=== PATIENT | female | born 1940 | race Caucasian/White ===

== ENCOUNTER 2019-12-04 15:42 | Emergency (ER) | payer MEDICARE ==
[~2019-12-04 15:42] MED LIST: ACET325 PO; AMLO5 PO; BUME2 PO; BUSP10 PO; CIPR500 PO; CLON.1 PO; ENAL20 PO; FURO40 PO; METR500 PO; Metformin HCl1000 MG PO; NAPR500 PO; POTCHL20ER PO; SACC250C PO; SERT100 PO; SIMV10 PO
== END 2019-12-04 16:00 | disposition left against medical advice (07) ==
LOC: ER 15:42
DX: Z53.21 Procedure and treatment not carried out due to patient leaving prior to being seen by health care provider (principal)

== ENCOUNTER 2019-12-04 19:33 | Emergency (ER) | payer MEDICARE ==
[~2019-12-04] VITALS: Ht 165.1 cm; Wt 85.3 kg
[2019-12-04 20:42] LABS: BASOPHILS ABSOLUTE AUTO 0.03 K/mm3 (0.00-0.23); BASOPHILS PERCENT AUTO 1 % (0-2); EOSINOPHILS ABSOLUTE AUTO 0.11 K/mm3 (0.00-0.68); EOSINOPHILS PERCENT AUTO 3 % (0-6); Hematocrit 35.9 % (33.0-51.0); Hemoglobin 11.8 g/dL (11.5-16.0); IMMATURE GRAN ABSOLUTE AUTO 0.03 K/mm3 (0.00-0.10); IMMATURE GRAN PERCENT AUTO 1 % (0-1); LYMPHOCYTES ABSOLUTE AUTO 0.75 K/mm3 (0.84-5.20); LYMPHOCYTES PERCENT AUTO 17 % (21-46); MONOCYTES ABSOLUTE AUTO 0.54 K/mm3 (0.16-1.47); MONOCYTES PERCENT AUTO 12 % (4-13); Mean Corpuscular HGB 30.6 pg (26.0-34.0); Mean Corpuscular HGB Conc 32.9 g/dL (31.5-36.5); Mean Corpuscular Volume 93 fL (80-100); Mean Platelet Volume 10.4 fL (9.1-12.4); NEUTROPHILS ABSOLUTE AUTO 2.93 K/mm3 (1.96-9.15); NEUTROPHILS PERCENT AUTO 67 % (41-73); Platelet Count 163 K/mm3 (150-400); RDW Coefficient Variation 14.8 % (11.7-14.2); RDW Standard Deviation 50.5 fL (35.1-46.3); Red Blood Cell Count 3.86 M/mm3 (3.80-5.20); White Blood Cell Count 4.39 K/mm3 (4.00-11.30)
[2019-12-04 20:51] LABS: Albumin, Blood 3.5 g/dL (3.4-5.0); Albumin/Globulin Ratio 0.6 (0.8-1.8); Bilirubin, Total 0.5 mg/dL (0.1-1.0); Bun/Creatinine Ratio 6.2 (12.0-20.0); C-REACTIVE PROTEIN, EXT RANGE 2.22 mg/dL (0.000-0.300); Calcium, Blood 10.4 mg/dL (8.5-10.1); Creatinine, Blood 4.03 mg/dL (0.40-1.00); Globulin, Blood 5.5 g/dL (2.2-4.0)
== END 2019-12-05 01:45 | disposition home or self-care (01) ==
LOC: ER 19:33
PROVIDERS: Physician Assistant
DX: I82.C11 Acute embolism and thrombosis of right internal jugular vein (principal); I12.0 Hypertensive chronic kidney disease with stage 5 chronic kidney disease or end stage renal disease; E11.22 Type 2 diabetes mellitus with diabetic chronic kidney disease; N18.6 End stage renal disease; F32.9 Major depressive disorder, single episode, unspecified; Z88.5 Allergy status to narcotic agent; Z88.8 Allergy status to other drugs, medicaments and biological substances; Z79.899 Other long term (current) drug therapy; Z87.891 Personal history of nicotine dependence; Z99.2 Dependence on renal dialysis
CPT/HCPCS: 36415; 70490; 70491; 80053; 83605; 85025; 85651; 86140; 99284-25; Q9967

== ENCOUNTER → 2020-01-04 | Outpatient (CLI) | payer MEDICARE ==
[~2020-01-04] MED LIST changes: -ACET325 PO; +ACET500 PO; +ALBU90OI INH; +ALLOPURINOL100 M1 PO; +Buspirone HCl5 MG PO; +COMBIVENT RESPIM4 G1 INH; +FAMC500 PO; +GABA100 PO; +GLIP5 PO; +Midodrine HCl5 MG PO; +ONDA4ODT SL; +PRED20 PO; +SENN187 PO; +SULFAMETHOXAZO1 EAC1 PO
[2020-01-04 11:15] LABS: Albumin, Blood 3.3 g/dL (3.4-5.0); Albumin/Globulin Ratio 0.8 (0.8-1.8); Bilirubin, Total 0.7 mg/dL (0.1-1.0); Bun/Creatinine Ratio 7.4 (12.0-20.0); Calcium, Blood 11.1 mg/dL (8.5-10.1); Creatinine, Blood 7.45 mg/dL (0.40-1.00); Globulin, Blood 4.1 g/dL (2.2-4.0); Potassium, Blood 3.9 mmol/L (3.5-5.5); Total Protein, Blood 7.4 g/dL (6.4-8.2)
== END | disposition home or self-care (01) ==
LOC: LAB 07:25 → LAB SHORT 07:25
PROVIDERS: Internal Medicine Hematology & Oncology
DX: E11.9 Type 2 diabetes mellitus without complications (principal)
CPT/HCPCS: 80053; 83615

== ENCOUNTER 2020-01-19 14:04 | Emergency (ER) | payer MEDICARE ==
[~2020-01-19] VITALS: Ht 165.1 cm; Wt 81.7 kg
[~2020-01-19 14:04] MED LIST changes: -ALBU90OI INH; -ALLOPURINOL100 M1 PO; -BUME2 PO; -Buspirone HCl5 MG PO; -COMBIVENT RESPIM4 G1 INH; -FAMC500 PO; -Midodrine HCl5 MG PO; -SERT100 PO; -SIMV10 PO
[2020-01-19 14:46] LABS: BASOPHILS ABSOLUTE AUTO 0.05 K/mm3 (0.00-0.23); BASOPHILS PERCENT AUTO 1 % (0-2); EOSINOPHILS ABSOLUTE AUTO 0.03 K/mm3 (0.00-0.68); EOSINOPHILS PERCENT AUTO 1 % (0-6); Hemoglobin 7.8 g/dL (11.5-16.0); IMMATURE GRAN ABSOLUTE AUTO 0.21 K/mm3 (0.00-0.10); IMMATURE GRAN PERCENT AUTO 4 % (0-1); LYMPHOCYTES ABSOLUTE AUTO 0.27 K/mm3 (0.84-5.20); LYMPHOCYTES PERCENT AUTO 6 % (21-46); MONOCYTES ABSOLUTE AUTO 0.32 K/mm3 (0.16-1.47); MONOCYTES PERCENT AUTO 7 % (4-13); Mean Corpuscular HGB 30.8 pg (26.0-34.0); Mean Corpuscular HGB Conc 32.5 g/dL (31.5-36.5); Mean Corpuscular Volume 95 fL (80-100); NEUTROPHILS ABSOLUTE AUTO 3.89 K/mm3 (1.96-9.15); NEUTROPHILS PERCENT AUTO 82 % (41-73); Platelet Count 143 K/mm3 (150-400); RDW Standard Deviation 54.4 fL (35.1-46.3); Red Blood Cell Count 2.53 M/mm3 (3.80-5.20); White Blood Cell Count 4.77 K/mm3 (4.00-11.30)
[2020-01-19 15:08] LABS: Albumin, Blood 3.3 g/dL (3.4-5.0); Albumin/Globulin Ratio 0.8 (0.8-1.8); Bilirubin, Total 0.5 mg/dL (0.1-1.0); Bun/Creatinine Ratio 3.8 (12.0-20.0); Calcium, Blood 9.2 mg/dL (8.5-10.1); Creatinine, Blood 2.87 mg/dL (0.40-1.00); Globulin, Blood 4.1 g/dL (2.2-4.0); Potassium, Blood 3.6 mmol/L (3.5-5.5); Total Protein, Blood 7.4 g/dL (6.4-8.2); Troponin I 0.094 ng/mL (0.000-0.040)
[2020-01-19] MEDS ORDERED: GABA100 PO (15:25)
[2020-03-17] MEDS ORDERED: Restoril15 MG PO (12:53)
[2020-03-17] MEDS ORDERED: ALLOPURINOL100 M1 PO (12:55)
[2020-03-17] MEDS ORDERED: Buspirone HCl5 MG PO (12:55)
[2020-03-17] MEDS ORDERED: FAMC500 PO (12:55)
[2020-03-17] MEDS ORDERED: PANTOPRAZOLE SO40 M2 PO (12:56)
[2020-03-17] MEDS ORDERED: SULFAMETHOXAZO1 EAC1 PO (12:56)
[2020-03-17] MEDS ORDERED: ROPI1 PO (12:57)
[2020-03-17] MEDS ORDERED: BUME2 PO (12:58)
[2020-03-17] MEDS ORDERED: SIMV10 PO (12:59)
[2020-03-17] MEDS ORDERED: SERT100 PO (13:03)
[2020-03-17] MEDS ORDERED: Midodrine HCl5 MG PO (13:05)
[2020-03-17] MEDS ORDERED: ALBU90OI INH (13:08)
[2020-03-17] MEDS ORDERED: COMBIVENT RESPIM4 G1 INH (13:10)
== END 2020-01-19 18:46 | disposition home or self-care (01) ==
LOC: ER 14:04
PROVIDERS: Emergency Medicine
DX: I13.2 Hypertensive heart and chronic kidney disease with heart failure and with stage 5 chronic kidney disease, or end stage renal disease (principal); I50.9 Heart failure, unspecified; N18.6 End stage renal disease; E11.22 Type 2 diabetes mellitus with diabetic chronic kidney disease; D63.1 Anemia in chronic kidney disease; Z88.8 Allergy status to other drugs, medicaments and biological substances; Z79.899 Other long term (current) drug therapy; F32.9 Major depressive disorder, single episode, unspecified; E78.5 Hyperlipidemia, unspecified; Z87.891 Personal history of nicotine dependence
CPT/HCPCS: 71045; 80053; 83735; 83880; 84484; 85025; 93005; 93010; 94640; 99285-25

== ENCOUNTER 2020-01-31 13:38 | Inpatient (IN) | payer MEDICARE ==
[~2020-01-31] VITALS: Ht 165.1 cm; Wt 82.1 kg
[2020-01-31 14:00] LABS: BASOPHILS PERCENT AUTO 0 % (0-2); EOSINOPHILS PERCENT AUTO 0 % (0-6); Hematocrit 26.8 % (33.0-51.0); Hemoglobin 8.7 g/dL (11.5-16.0); IMMATURE GRAN ABSOLUTE AUTO 0.05 K/mm3 (0.00-0.10); IMMATURE GRAN PERCENT AUTO 1 % (0-1); LYMPHOCYTES ABSOLUTE AUTO 0.22 K/mm3 (0.84-5.20); LYMPHOCYTES PERCENT AUTO 2 % (21-46); MONOCYTES PERCENT AUTO 3 % (4-13); Mean Corpuscular HGB 31.8 pg (26.0-34.0); Mean Corpuscular HGB Conc 32.5 g/dL (31.5-36.5); Mean Corpuscular Volume 98 fL (80-100); Mean Platelet Volume 9.3 fL (9.1-12.4); NEUTROPHILS ABSOLUTE AUTO 8.48 K/mm3 (1.96-9.15); NEUTROPHILS PERCENT AUTO 94 % (41-73); Platelet Count 165 K/mm3 (150-400); RDW Coefficient Variation 19.6 % (11.7-14.2); RDW Standard Deviation 68.6 fL (35.1-46.3); Red Blood Cell Count 2.74 M/mm3 (3.80-5.20); White Blood Cell Count 9.05 K/mm3 (4.00-11.30)
[2020-01-31 14:21] LABS: Albumin, Blood 3.6 g/dL (3.4-5.0); Albumin/Globulin Ratio 0.9 (0.8-1.8); Bilirubin, Total 0.8 mg/dL (0.1-1.0); Bun/Creatinine Ratio 5.6 (12.0-20.0); Calcium, Blood 8.8 mg/dL (8.5-10.1); Creatinine, Blood 1.98 mg/dL (0.40-1.00); Globulin, Blood 3.8 g/dL (2.2-4.0); Potassium, Blood 3.5 mmol/L (3.5-5.5); Total Protein, Blood 7.4 g/dL (6.4-8.2)
[2020-01-31] MEDS ORDERED: GABA100 PO (18:11)
[2020-01-31] MEDS ORDERED: GLIP5 PO (18:12)
[2020-02-01 02:51] LABS: Hematocrit 28.2 % (33.0-51.0)
[2020-02-01 03:08] LABS: Albumin, Blood 3.5 g/dL (3.4-5.0); Anion Gap 7 mmol/L (6-16); Blood Urea Nitrogen 22 mg/dL (8-24); Bun/Creatinine Ratio 6.7 (12.0-20.0); CO2, Blood 37 mmol/L (21-32); Calcium, Blood 9.2 mg/dL (8.5-10.1); Chloride, Blood 94 mmol/L (98-108); Creatinine, Blood 3.28 mg/dL (0.40-1.00); Glomerular Filtration Rate 14 (60-); Glucose, Blood 97 mg/dL (70-99); Magnesium, Blood 2.3 mg/dL (1.6-2.4); Phosphorus, Blood 3.9 mg/dL (2.5-4.9); Potassium, Blood 3.3 mmol/L (3.5-5.5); Sodium, Blood 138 mmol/L (136-145)
--- NOTE | 2020-02-01 05:25 | NUR ---
SHIFT SUMMARY PT WAS NER ER ADMIT AT START OF SHIFT, NO ACUTE CHANGES SINCE ASSUMING CARE, PT IS A&O, USES CALL LIGHT APPROPIATELY, SLEPT ROUGH T/O THE NIGHT- TALKING IN HER SLEEP, PULLING OFF NC FOR O2, THRASHING LEGS AROUND, OCCASIONALLY SITTING UP TO SIDE OF BED, STATES THIS IS NORMAL FOR HER, APPEARS TO BE SLEEPING AT THIS TIME, CALL LIGHT IN REACH, BED ALARM ACTIVE, WILL CONT TO MONITOR UNTIL REPORT GIVEN TO DAY RN.
--- NOTE | 2020-02-01 09:24 | NUR ---
PATIENT TAKNE VIA W/C TO DIALYSIS ROOM.
--- NOTE | 2020-02-01 16:50 | NUR ---
PATIENT HAD DIALYSIS TODAY. PERM CATH TO R UPPER CHEST. OLD FISTULAS TO BLE, B/P'S BEING DONE ON LEGS. RECENT FALLS WITH BRUISING TO R EYE/FOREHEAD/ LOWER BACK. PATIENT IS A/OX4, VERY DROWSY TODAY DUE TO PPOOR SLEEP LAST NIGHT. HYPOTENSIVE AT TIMES, MIDODRONE ORDERED TO TREAT. UP WITH 1 ASSIST AND FWW TO RESTROOM. FALL PRECAUTIONS IN PLACE PER UNIT PROTOCOL AND 4 BED RAILS UP AT PATIENT REQUEST DUE TO FEAR OF FALLING OUT OF BED. PATIENT IS CALM AND COOPERATIVE WITH CARE. TOLERATING 2G NA+ DIET, TAKES PILLS WHOLE IN APPLESAUCE.
--- NOTE | 2020-02-01 18:50 | NUR ---
ASSUMED CARE RECEIVED REPORT FROM SANJIV GRIER. ASSUMED CARE OF PT. PT ASLEEP AT THIS TIME, PER REPORT PT HAD A ROUGH NIGHT THE PREVIOUS NIGHT. SIDERAILS UP X4 PER PT REQUEST, R/T FEAR OF FALLING OOB D/T RESTLESSNESS. PT APPEARS COMFORTABLE. RESPS EVEN AND UNLABORED. CALL LIGHT, POSSESSIONS IN REACH, BED IN LOWEST POSITION WITH ALARM ON. WILL CONTINUE TO MONITOR PT.
[2020-02-02 01:05] LABS: Source, Urine Clean Catch
[2020-02-02 01:22] LABS: Bilirubin, Urine Neg (Neg); Blood, Urine 1+ (Neg); Glucose Qualitative, Urine 3+ (Neg); Ketones, Urine Neg (Neg); Leukocyte Esterase, Urine 2+ (Neg); Nitrite, Urine Neg (Neg); Protein, Urine 3+ (Neg); Urobilinogen, Urine NORM (Normal)
[2020-02-02 01:30] LABS: Appearance, Urine Hazy (Clear); Color, Urine Yellow (P-Yellow)
[2020-02-02 01:31] LABS: Bacteria Mod /hpf; Red Blood Cells, Urine 25-50 /hpf (0-2); Squamous Epithelial Cells Mod /hpf (Few); White Blood Cells, Urine 50-100 /hpf (0-5)
[2020-02-02 04:42] LABS: BASOPHILS ABSOLUTE AUTO 0.02 K/mm3 (0.00-0.23); BASOPHILS PERCENT AUTO 0 % (0-2); EOSINOPHILS ABSOLUTE AUTO 0.03 K/mm3 (0.00-0.68); EOSINOPHILS PERCENT AUTO 0 % (0-6); Hematocrit 27.9 % (33.0-51.0); Hemoglobin 8.6 g/dL (11.5-16.0); IMMATURE GRAN ABSOLUTE AUTO 0.07 K/mm3 (0.00-0.10); IMMATURE GRAN PERCENT AUTO 1 % (0-1); LYMPHOCYTES ABSOLUTE AUTO 0.47 K/mm3 (0.84-5.20); LYMPHOCYTES PERCENT AUTO 5 % (21-46); MONOCYTES ABSOLUTE AUTO 0.65 K/mm3 (0.16-1.47); MONOCYTES PERCENT AUTO 7 % (4-13); Mean Corpuscular HGB 31.6 pg (26.0-34.0); Mean Corpuscular HGB Conc 30.8 g/dL (31.5-36.5); Mean Platelet Volume 9.9 fL (9.1-12.4); NEUTROPHILS ABSOLUTE AUTO 7.95 K/mm3 (1.96-9.15); NEUTROPHILS PERCENT AUTO 87 % (41-73); Platelet Count 167 K/mm3 (150-400); RDW Coefficient Variation 20.1 % (11.7-14.2); RDW Standard Deviation 74.6 fL (35.1-46.3); Red Blood Cell Count 2.72 M/mm3 (3.80-5.20); White Blood Cell Count 9.19 K/mm3 (4.00-11.30)
[2020-02-02 04:48] LABS: Mean Corpuscular Volume 103 fL (80-100)
[2020-02-02 04:59] LABS: Albumin, Blood 3.3 g/dL (3.4-5.0); Anion Gap 7 mmol/L (6-16); Blood Urea Nitrogen 26 mg/dL (8-24); Bun/Creatinine Ratio 7.3 (12.0-20.0); CO2, Blood 32 mmol/L (21-32); Calcium, Blood 9.1 mg/dL (8.5-10.1); Chloride, Blood 98 mmol/L (98-108); Creatinine, Blood 3.54 mg/dL (0.40-1.00); Glomerular Filtration Rate 13 (60-); Glucose, Blood 144 mg/dL (70-99); Magnesium, Blood 2.2 mg/dL (1.6-2.4); Phosphorus, Blood 3.7 mg/dL (2.5-4.9); Potassium, Blood 3.7 mmol/L (3.5-5.5); Sodium, Blood 137 mmol/L (136-145)
--- NOTE | 2020-02-02 06:16 | NUR ---
SHIFT SUMMARY PT SLEPT OFF AND ON T/O NIGHT, NOTED TO HAVE INCREASING DYSPNEA WHEN LYING DOWN, IMPROVED WITH ORTHOPNEIC POSITION. ENCOURAGED PT TO USE PURSED-LIP BREATHING, EXPLAINED BY RT. PT INDICATED UNDERSTANDING. EXPRESSING GRIEF STATING SHE FEELS "LIKE A BURDEN TO OTHERS." PROVIDED ACTIVE LISTENING, ENCOURAGED PT TO EXPRESS FEELINGS. SIDERAILS X4 T/O NIGHT PER PT REQUEST, D/T ONGOING FEAR OF FALLING OOB. PT ASSISTED TO BATHROOM, USING FWW. CALL CORD IN REACH. WILL CONTINUE TO MONITOR PT UNTIL DAY RN ASSUMES CARE.
--- NOTE | 2020-02-02 16:24 | NUR ---
SHIFT SUMMARY PT AWAKE AT START OF SHIFT, SITTING UP TO CHAIR AT BS. A&O, AND PLEASANT. ADMITTED FOR ESRD AND FLUID OVERLOAD. NO DIALYSIS TODAY, PER ORDERS. PT TO HAVE DIALYSIS TOMORROW AND POSSIBLE D/C AFTERWARDS. LUNGS T/O WITH SCATTERED WHEEZES. DR BRANDON IN TO SEE PT. NEW ORDERS PLACED. PT REPORTED THAT SHE IS ON A FR AT HOME; NONE ORDERED HERE, BUT PT REPORTS THAT SHE MONITORS WHAT SHE TAKES IN. REPORTS THAT SHE STILL VOIDS, EVEN WITH DIALYSIS. PERMA CATH TO [facility]. INDEPENDENT IN AND TO [facility]. BRUISING TO R EYE/FACE, AND CHEEK AREA D/T FALL AT HOME. SCATTERED BRUISING/SCABS TO BUE'S; REFUSED HEPARIN D/T BLEEDING AND BRUISING ISSUES. PER SHIFT REPORT, PT HAD CHEMO X1 IN MID DECEMBER FOR LYMPHOMA; NEXT TX TO BE IN 3 WKS. A-FIB ON TELE WITH NO EVENTS; DR BRANDON TO REVIEW CHART FOR POSSIBLE D/C OF TELE. INCREASED AUDIBLE WHEEZING THIS AFTERNOON; PT STARTED ON SOLUMEDROL. RESTING QUIETLY IN BED AT THIS TIME; PT HAS BEEN UP TO CHAIR MOST OF THE DAY. CALL LT IN REACH.
--- NOTE | 2020-02-02 19:00 | NUR ---
ASSUMED CARE RECEIVED REPORT FROM SANJIV REZA. ASSUMED CARE OF PT. RESTING COMFORTABLY AT THIS TIME, NO S/S ACUTE DISTRESS NOTED, RESPS EVEN AND UNLABORED. DENIES NEEDS AT THIS TIME. CALL LIGHT, POSSESSIONS IN REACH. BED IN LOWEST POSITION WITH ALARMS ON. WILL CONTINUE TO MONITOR.
[2020-02-03 05:34] LABS: Hematocrit 26.2 % (33.0-51.0); Hemoglobin 8.4 g/dL (11.5-16.0)
[2020-02-03 05:57] LABS: Albumin, Blood 3.3 g/dL (3.4-5.0); Anion Gap 10 mmol/L (6-16); Blood Urea Nitrogen 48 mg/dL (8-24); CO2, Blood 28 mmol/L (21-32); Calcium, Blood 9.6 mg/dL (8.5-10.1); Chloride, Blood 95 mmol/L (98-108); Creatinine, Blood 4.78 mg/dL (0.40-1.00); Glomerular Filtration Rate 9 (60-); Glucose, Blood 197 mg/dL (70-99); Magnesium, Blood 2.4 mg/dL (1.6-2.4); Sodium, Blood 133 mmol/L (136-145)
--- NOTE | 2020-02-03 07:16 | NUR ---
SHIFT SUMMARY PT WAS AWAKE ON AND OFF T/O NIGHT, SAT ON EDGE OF BED SEVERAL TIMES T/O NIGHT, STATED THAT IT HELPS HER TO BREATHE BETTER. TOLERATED SOLUMEDROL WELL, APPEARED TO EASE PT BREATHING. VS AND 02 SATS STABLE. NO OTHER ACUTE EVENTS NOTED. ENCOURAGED PT TO USE PURSED-LIP BREATHING, DEMONSTRATED UNDERSTANDING. DENIES NEEDS AT THIS TIME. CALL LIGHT, POSSESSIONS IN REACH, REPORT GIVEN TO SANJIV REZA.
--- NOTE | 2020-02-03 15:57 | NUR ---
SHIFT SUMMARY PT AWAKE THIS AM DURING SHIFT REPORT, SITTING UP TO EOB. PT REPORTED THAT SHE WAS UNABLE TO GET MUCH SLEEP LAST NIGHT D/T HER BREATHING. PT REPORTED THAT HER WHEEZING KEPT HER AWAKE. PT INFORMED OF DIALYSIS AND TAKEN DOWN AT 0855. PT HOPING TO GO HOME TODAY, BUT NEEDING ONE MORE DAY PER DR WALTON. LUNGS T/O WITH INSP/EXP WHEEZES TODAY. PT/OT IN TO SEE PT TODAY. PT AMBULATES WELL WITH FWW AND SBA. SITTING UP TO EOB, TALKING ON PHONE. VERY PLEASANT AND CO-OP. CALL LT IN REACH.
--- NOTE | 2020-02-03 19:10 | NUR ---
ASSUMED CARE RECEIVED REPORT FROM SANJIV REZA. ASSUMED CARE OF PT. NO S/S ACUTE DISTRESS NOTED, PT APPEARS TO BE BREATHING WELL, NO C/O DYSPNEA AT THIS TIME. DENIES NEEDS AT THIS TIME, CALL LIGHT, POSSESSIONS IN REACH, BED IN LOWEST POSITION WITH ALARMS ON. WILL CONTINUE TO MONITOR PT CONDITION.
[2020-02-04 05:40] LABS: Hematocrit 28.8 % (33.0-51.0)
[2020-02-04 06:02] LABS: Magnesium, Blood 2.3 mg/dL (1.6-2.4)
[2020-02-04 06:20] LABS: Albumin, Blood 3.4 g/dL (3.4-5.0); Anion Gap 9 mmol/L (6-16); Blood Urea Nitrogen 53 mg/dL (8-24); Bun/Creatinine Ratio 10.9 (12.0-20.0); CO2, Blood 29 mmol/L (21-32); Chloride, Blood 96 mmol/L (98-108); Creatinine, Blood 4.86 mg/dL (0.40-1.00); Glomerular Filtration Rate 9 (60-); Glucose, Blood 163 mg/dL (70-99); Phosphorus, Blood 4.3 mg/dL (2.5-4.9); Potassium, Blood 4.4 mmol/L (3.5-5.5); Sodium, Blood 134 mmol/L (136-145)
--- NOTE | 2020-02-04 06:31 | NUR ---
SHIFT SUMMARY PT SITTING ON EDGE OF BED, IN POSITION OF COMFORT. RESPS EVEN, UNLABORED. SATS STABLE ON RA AND 2L O2/NC. ON 2L/NC AT THIS TIME D/T LOW SATS THIS AM. SLEPT ON AND OFF T/O NIGHT, STATED MELATONIN HELPED HER TO GET A LITTLE BIT MORE SLEEP THAN PREVIOUS NIGHTS. VS STABLE. DR. TAYLOR IN TO SEE PT THIS AM, STATED PT IS STABLE TO DISCHARGE FROM HIS STANDPOINT, DID STATE HE WANTED PT TO RECEIVE DIALYSIS PRIOR TO DISCHARGE HOME TODAY. WILL INFORM DAY RN. NO PLANS IN PLACE FOR PT TO RECEIVE CHEMOTHERAPY TODAY. PT DENIES NEEDS AT THIS TIME. CALL LIGHT, POSSESSIONS IN REACH. BED IN LOWEST POSITION WITH ALARM ON. WILL CONTINUE TO MONITOR UNTIL DAY RN ASSUMES CARE.
[2020-02-04] MEDS ORDERED: LEVFLO500 PO (12:25)
[2020-02-04] MEDS ORDERED: MELA3 PO (12:26)
[2020-02-04] MEDS ORDERED: Prednisone10 MG PO (12:28)
--- NOTE | 2020-02-04 14:22 | NUR ---
review d'c. AWARE HAS F/U APPT WITH PCP ON 02/05. AWARE HAS DIALYSIS TOMORROW. REVIEW MEDS THAT ARE AT [facility]. AWARE CAN RETURN IF ANY PROBLEMS. ANSWER ALL QUESTIONS. IN W/C DOWN TO POV W/RELATIVE DRIVING
[2020-03-17] MEDS ORDERED: Restoril15 MG PO (12:53)
[2020-03-17] MEDS ORDERED: FAMC500 PO (12:55)
[2020-03-17] MEDS ORDERED: ALLOPURINOL100 M1 PO (12:55)
[2020-03-17] MEDS ORDERED: Buspirone HCl5 MG PO (12:55)
[2020-03-17] MEDS ORDERED: SULFAMETHOXAZO1 EAC1 PO (12:56)
[2020-03-17] MEDS ORDERED: PANTOPRAZOLE SO40 M2 PO (12:56)
[2020-03-17] MEDS ORDERED: ROPI1 PO (12:57)
[2020-03-17] MEDS ORDERED: BUME2 PO (12:58)
[2020-03-17] MEDS ORDERED: SIMV10 PO (12:59)
[2020-03-17] MEDS ORDERED: SERT100 PO (13:03)
[2020-03-17] MEDS ORDERED: Midodrine HCl5 MG PO (13:05)
[2020-03-17] MEDS ORDERED: ALBU90OI INH (13:08)
[2020-03-17] MEDS ORDERED: COMBIVENT RESPIM4 G1 INH (13:10)
== END 2020-02-04 14:25 | disposition home health service (06) | DRG 291 ==
LOC: ER 13:38 → MEDS 13:39 → ER 17:39 → MEDS 18:42 → ENPENDDIS 02-04 10:12 → MEDS 02-04 14:25
PROVIDERS: Emergency Medicine; Internal Medicine Nephrology; Student in an Organized Health Care Education/Training Program; ADMIT Internal Medicine
PROC: 5A1D70Z Performance of Urinary Filtration, Intermittent, Less than 6 Hours Per Day (ICD-10-PCS; principal; 2020-02-01)
DX: I13.2 Hypertensive heart and chronic kidney disease with heart failure and with stage 5 chronic kidney disease, or end stage renal disease (principal); N18.6 End stage renal disease; I50.33 Acute on chronic diastolic (congestive) heart failure; I48.20 Chronic atrial fibrillation, unspecified; E87.1 Hypo-osmolality and hyponatremia; C83.31 Diffuse large B-cell lymphoma, lymph nodes of head, face, and neck; J44.1 Chronic obstructive pulmonary disease with (acute) exacerbation; N25.81 Secondary hyperparathyroidism of renal origin; D63.1 Anemia in chronic kidney disease; E11.22 Type 2 diabetes mellitus with diabetic chronic kidney disease; E11.42 Type 2 diabetes mellitus with diabetic polyneuropathy; Z99.2 Dependence on renal dialysis; E78.5 Hyperlipidemia, unspecified; E87.6 Hypokalemia; G25.81 Restless legs syndrome; I95.9 Hypotension, unspecified; I27.20 Pulmonary hypertension, unspecified; F32.9 Major depressive disorder, single episode, unspecified; R29.6 Repeated falls; Z91.81 History of falling; Z92.21 Personal history of antineoplastic chemotherapy; Z87.891 Personal history of nicotine dependence
CPT/HCPCS: 36415; 70450; 71045; 71046; 80053; 80069; 81001; 82947; 83605; 83735; 83880; 84100; 84145; 84443; 84484; 85014; 85018; 85025; 87040; 87086; 93005; 93010; 93308; 93321; 94640; 94760; 97110; 97163; 97166; 97535; 99285-25; A9270; A9270-GY; J0881; J1644; J2920; J7512

== ENCOUNTER 2020-04-25 21:59 | Emergency (ER) | payer MEDICARE ==
[~2020-04-25] VITALS: Ht 165.1 cm; Wt 77.1 kg
[~2020-04-25 21:59] MED LIST changes: +ALBU90OI INH; +ALLOPURINOL100 M1 PO; +BUME2 PO; +Buspirone HCl5 MG PO; +COMBIVENT RESPIM4 G1 INH; +FAMC500 PO; +LEVFLO500 PO; +MELA3 PO; +Midodrine HCl5 MG PO; +PANTOPRAZOLE SO40 M2 PO; +Prednisone10 MG PO; +ROPI1 PO; +Restoril15 MG PO; +SERT100 PO; +SIMV10 PO
[2020-04-25 22:45] LABS: BASOPHILS ABSOLUTE AUTO 0.05 K/mm3 (0.00-0.23); BASOPHILS PERCENT AUTO 2 % (0-2); EOSINOPHILS ABSOLUTE AUTO 0.04 K/mm3 (0.00-0.68); EOSINOPHILS PERCENT AUTO 1 % (0-6); Hematocrit 27.9 % (33.0-51.0); IMMATURE GRAN PERCENT AUTO 0 % (0-1); LYMPHOCYTES ABSOLUTE AUTO 0.84 K/mm3 (0.84-5.20); LYMPHOCYTES PERCENT AUTO 26 % (21-46); MONOCYTES ABSOLUTE AUTO 0.56 K/mm3 (0.16-1.47); MONOCYTES PERCENT AUTO 17 % (4-13); Mean Corpuscular HGB 32.6 pg (26.0-34.0); Mean Corpuscular HGB Conc 32.3 g/dL (31.5-36.5); Mean Corpuscular Volume 101 fL (80-100); Mean Platelet Volume 9.7 fL (9.1-12.4); NEUTROPHILS ABSOLUTE AUTO 1.78 K/mm3 (1.96-9.15); NEUTROPHILS PERCENT AUTO 55 % (41-73); Platelet Count 109 K/mm3 (150-400); RDW Coefficient Variation 15.6 % (11.7-14.2); RDW Standard Deviation 58.4 fL (35.1-46.3); Red Blood Cell Count 2.76 M/mm3 (3.80-5.20); White Blood Cell Count 3.27 K/mm3 (4.00-11.30)
[2020-04-25 23:02] LABS: Albumin, Blood 3.2 g/dL (3.4-5.0); Bilirubin, Total 0.7 mg/dL (0.1-1.0); Bun/Creatinine Ratio 5.6 (12.0-20.0); Calcium, Blood 8.9 mg/dL (8.5-10.1); Creatinine, Blood 3.42 mg/dL (0.40-1.00); Globulin, Blood 3.3 g/dL (2.2-4.0); Potassium, Blood 3.1 mmol/L (3.5-5.5); Total Protein, Blood 6.5 g/dL (6.4-8.2); Troponin I 0.158 ng/mL (0.000-0.040)
[2020-04-25] MEDS ORDERED: POTA8 PO (23:24)
[2020-04-25] MEDS ORDERED: ONDA4 PO (23:25)
[2020-04-25] MEDS ORDERED: Glipizide Xl2.5 MG (23:26)
[2020-04-25] MEDS ORDERED: SERT20L (23:26)
[2020-04-25] MEDS ORDERED: PRED1 (23:26)
== END 2020-04-26 | disposition home or self-care (01) ==
LOC: ER 21:59
PROVIDERS: Emergency Medicine
DX: I13.2 Hypertensive heart and chronic kidney disease with heart failure and with stage 5 chronic kidney disease, or end stage renal disease (principal); I50.9 Heart failure, unspecified; J44.1 Chronic obstructive pulmonary disease with (acute) exacerbation; E11.22 Type 2 diabetes mellitus with diabetic chronic kidney disease; N18.6 End stage renal disease; E78.5 Hyperlipidemia, unspecified; F32.9 Major depressive disorder, single episode, unspecified; C85.91 Non-Hodgkin lymphoma, unspecified, lymph nodes of head, face, and neck; Z92.21 Personal history of antineoplastic chemotherapy; Z88.5 Allergy status to narcotic agent; Z88.8 Allergy status to other drugs, medicaments and biological substances; Z79.899 Other long term (current) drug therapy; Z87.891 Personal history of nicotine dependence
CPT/HCPCS: 71045; 80053; 83880; 84484; 85025; 93005; 93010; 96374; 96375; 99285-25; J1940; J2930

== ENCOUNTER 2020-05-01 14:31 | Inpatient (IN) | payer MEDICARE ==
[~2020-05-01] VITALS: Ht 167.6 cm; Wt 75.2 kg
[~2020-05-01 14:31] MED LIST changes: +ONDA4 PO; +POTA8 PO; +PRED1; +SERT20L
[2020-05-01 15:22] LABS: BASOPHILS ABSOLUTE AUTO 0.04 K/mm3 (0.00-0.23); BASOPHILS PERCENT AUTO 2 % (0-2); EOSINOPHILS ABSOLUTE AUTO 0.09 K/mm3 (0.00-0.68); EOSINOPHILS PERCENT AUTO 3 % (0-6); Hematocrit 31.5 % (33.0-51.0); IMMATURE GRAN ABSOLUTE AUTO 0.01 K/mm3 (0.00-0.10); IMMATURE GRAN PERCENT AUTO 0 % (0-1); LYMPHOCYTES PERCENT AUTO 23 % (21-46); MONOCYTES ABSOLUTE AUTO 0.67 K/mm3 (0.16-1.47); MONOCYTES PERCENT AUTO 25 % (4-13); Mean Corpuscular HGB 32.5 pg (26.0-34.0); Mean Corpuscular HGB Conc 31.7 g/dL (31.5-36.5); Mean Corpuscular Volume 102 fL (80-100); Mean Platelet Volume 9.8 fL (9.1-12.4); NEUTROPHILS ABSOLUTE AUTO 1.26 K/mm3 (1.96-9.15); NEUTROPHILS PERCENT AUTO 47 % (41-73); Platelet Count 156 K/mm3 (150-400); RDW Coefficient Variation 14.9 % (11.7-14.2); RDW Standard Deviation 55.6 fL (35.1-46.3); Red Blood Cell Count 3.08 M/mm3 (3.80-5.20); White Blood Cell Count 2.67 K/mm3 (4.00-11.30)
[2020-05-01 15:42] LABS: Albumin, Blood 3.5 g/dL (3.4-5.0); Albumin/Globulin Ratio 1.1 (0.8-1.8); Bilirubin, Total 0.6 mg/dL (0.1-1.0); Calcium, Blood 9.5 mg/dL (8.5-10.1); Creatinine, Blood 4.34 mg/dL (0.40-1.00); Globulin, Blood 3.3 g/dL (2.2-4.0); Total Protein, Blood 6.8 g/dL (6.4-8.2); Troponin I 0.121 ng/mL (0.000-0.040)
[2020-05-01] MEDS ORDERED: SERT100 PO (19:03)
[2020-05-01 23:01] LABS: PCO2 Arterial 38.2 mmHg (35-45); PO2 Arterial 89.3 mmHg (80-100); pH Blood Arterial 7.49 (7.35-7.45)
--- NOTE | 2020-05-02 00:55 | NUR ---
NEW ADMIT PT ARRIVED TO PCU AT APPROX 2215 FROM ED VIA HOSPITAL BED. PT AMBULATED FROM ED BED TO PCU BED. PT A&O X4. PT A GOOD HISTORIAN, ABLE TO ANSWER QUESTIONS APPROPRIATELY. SP02 >94% ON 3L NC. AUDIBLE WHEEZING T/O LUNGS. TELEMETRY READS AFIB, HR 95. DIALYSIS PORT IN UPPER RIGHT CHEST. FISTULA IN R ARM, PT STATES NOT USABLE. CONSULT TO DR TAYLOR, NOTIFIED BY NURSE. MD TAYLOR ORDERED STAT ABG. RESPIRATORY THERAPY IN ROOM TO COMPLETE ABG. RESULTS CALLED TO MD TAYLOR WITH ORDERS FOR MORNING LABS AND ARANESP. MODERATE EDEMA NOTED IN BLE. PT DENIES PAIN. CALL LIGHT WITHIN REACH. WILL CONTINUE TO MONITOR.
[2020-05-02 04:51] LABS: Hematocrit 29.3 % (33.0-51.0); Hemoglobin 9.4 g/dL (11.5-16.0)
[2020-05-02 05:22] LABS: Albumin, Blood 3.6 g/dL (3.4-5.0); Anion Gap 11 mmol/L (6-16); Blood Urea Nitrogen 30 mg/dL (8-24); Bun/Creatinine Ratio 6.2 (12.0-20.0); CO2, Blood 26 mmol/L (21-32); Calcium, Blood 9.3 mg/dL (8.5-10.1); Chloride, Blood 96 mmol/L (98-108); Creatinine, Blood 4.83 mg/dL (0.40-1.00); Glomerular Filtration Rate 9 (60-); Glucose, Blood 173 mg/dL (70-99); Magnesium, Blood 2.3 mg/dL (1.6-2.4); Phosphorus, Blood 4.9 mg/dL (2.5-4.9); Potassium, Blood 4.2 mmol/L (3.5-5.5); Sodium, Blood 133 mmol/L (136-145)
--- NOTE | 2020-05-02 07:34 | NUR ---
SHIFT SUMMARY PT ADMITTED TO PCU THIS SHIFT, SEE ADMIT NOTE. PT A&O X4. SP02 >94% ON 3L NC. DYSPNEA UPON EXERTION. LUNGS HAVE WHEEZES. TELEMETRY READS AFIB, 90'S. DENIES PAIN. PT DID NOT VOID DURING THIS SHIFT. STATES SHE DID PRIOR TO BEING ADMITTED AND ONLY GOES ABOUT "2X PER DAY". PT DID NOT SLEEP MUCH DURING THIS SHIFT, RESTED IN ROOM AND WATCHED TV. CALL LIGHT IN REACH. WILL CONTINUE TO MONITOR.
--- NOTE | 2020-05-02 19:43 | NUR ---
SHIFT SUMMARY: PATIENT XFR FROM PCU THIS SHIFT. PT A&O; CALM AND COOEPRATIVE WITH CARE. NO C/O PAIN THIS SHIFT. DIALYSIS THIS SHIFT; PT TOLERATED WELL. TELE IN PLACE; A-FIB IN 90s PER TAXONOMY TEACHER. IV STEROIDS CONTINUING. REPORT GIVEN TO ONCOMING RN.
--- NOTE | 2020-05-03 04:43 | NUR ---
SHIFT SUMMARY ASSUMED CARE OF PT AT 1900. PT IS A/OX4, DENIES N/T IN EXTREMITES. TELE SHOWS PT WAS IN AFIB @ 100, DENIES CP. LUNG SOUNDS HAVE INSPIRATORY AND EXPIRATORY WHEEZES, PT C/O SOB WITH ACTIVITY, PT IS ON 5L NC BUT WAS RA 6 MONTHS AGO BEFORE CHEMO TREATMENT. PT EDUCATED ON DISEASE PROGRESSION OF COPD AND CHF. PT IS 1P SBA TO BATHROOM. NO ACUTE EVENTS DURING THE NIGHT. PT SLEPT MOST OF THE NIGHT. CALL LIGHT IN REACH, BED IN LOWEST POSTITION.
[2020-05-03 05:18] LABS: Hematocrit 30.8 % (33.0-51.0); Hemoglobin 9.5 g/dL (11.5-16.0)
[2020-05-03 05:45] LABS: Albumin, Blood 3.8 g/dL (3.4-5.0); Anion Gap 10 mmol/L (6-16); Blood Urea Nitrogen 36 mg/dL (8-24); Bun/Creatinine Ratio 8.5 (12.0-20.0); CO2, Blood 27 mmol/L (21-32); Calcium, Blood 9.4 mg/dL (8.5-10.1); Chloride, Blood 95 mmol/L (98-108); Creatinine, Blood 4.26 mg/dL (0.40-1.00); Glomerular Filtration Rate 11 (60-); Glucose, Blood 206 mg/dL (70-99); Magnesium, Blood 2.3 mg/dL (1.6-2.4); Potassium, Blood 4.3 mmol/L (3.5-5.5); Sodium, Blood 132 mmol/L (136-145)
--- NOTE | 2020-05-03 16:09 | NUR ---
SHIFT SUMMARY PT AOX4. PT HAD A DIALYSIS THIS MORNING; TOLERATED WELL. PT HAS BLE EDEMA; PALPABLE PULSES. PT IS ON 2L OF O2; SOB ON EXERTION- WHEEZE HEARD THROUGHOUT; RT IS WORKING WITH PT. NO OTHER ACUTE CHANGES ON THIS SHIFT. BED IS IN THE LOWEST POSITION; CALL LIGHTS WITHIN REACH; AND WILL CONT MONITOR.
--- NOTE | 2020-05-04 04:37 | NUR ---
SHIFT [place] ASSUMED CARE OF PT AT 1900. PT IS A.OX4. HEART SOUNDS IRREGUALR, TELE SHOWS AFIB @ 110. LUNG SOUNDS HAVE INS/EXP WHEEZES IN R UPPER LOBE AND DIMINSHED T/O. PT WAS WORKING HARDER TO BREATH THIS AROUND 0000, SATURATIONS WERE 99 ON 2L NC. RT CONSULTED AND BREATHING TREATMENT GIVEN, PT DID NOT RESPOND. RT REQUESTED THAT COPD PROTOCAL WOULD BE INITIATED AGAIN SO THEY COULD DO MORE FOR THE PATIENT AND POSSIBLY PUT PT BACK ON HIGHER DOSE OF SOLUMEDROL. HOSPITALIST CALLED AND GRANTED RT COPD PROTOCAL. HOSPITALIST ORDERED 40MG SOLUMEDROL NOW AND TO PUT HER BACK ON Q6 60MG SOLUMEDROL. PT RESPONDED WELL WITH EXTRA DOSE OF SOLUMEDROL. PT WAS ABLE TO HAVE A LONG CONVERSATION WITH THIS NURSE ABOUT HE CAT AT HOME, WHO SHE IS WORRIED ABOUT. PT WAS THEN ABLE TO SLEPT FOR ABOUT 3 HRS. PT AWOKE OUT OF BRERATH BUT STATES THIS IS NORMAL WHEN SHE FIRST WAKES UP. RT CONSULTED. CALL LIGHT IN REACH, BED IN LOWEST POSITION, WILL CONTINUE TO MOINTOR.
[2020-05-04 05:08] LABS: Hematocrit 32.4 % (33.0-51.0); Hemoglobin 10.4 g/dL (11.5-16.0)
[2020-05-04 05:49] LABS: Albumin, Blood 3.8 g/dL (3.4-5.0); Anion Gap 12 mmol/L (6-16); Blood Urea Nitrogen 46 mg/dL (8-24); Bun/Creatinine Ratio 11.9 (12.0-20.0); CO2, Blood 26 mmol/L (21-32); Calcium, Blood 9.7 mg/dL (8.5-10.1); Chloride, Blood 95 mmol/L (98-108); Creatinine, Blood 3.86 mg/dL (0.40-1.00); Glomerular Filtration Rate 12 (60-); Glucose, Blood 227 mg/dL (70-99); Magnesium, Blood 2.3 mg/dL (1.6-2.4); Phosphorus, Blood 4.5 mg/dL (2.5-4.9); Potassium, Blood 4.6 mmol/L (3.5-5.5); Sodium, Blood 133 mmol/L (136-145)
--- NOTE | 2020-05-04 13:24 | NUR ---
PATIENT TO DIALYSIS ROOM VIA WC.
--- NOTE | 2020-05-04 17:38 | NUR ---
SHIFT SUMMARY PT AOX4; VERY PLEASANT AND CALLS APPROPRIATELY. POST-FALL ASSESSMENT-SEE CHART; VSS. PT SOB ON EXERTION; ON 2L OF OXYGEN; SATS ABOVE 90S. PT HAD A HEAD CT TODAY; PT DISCUSSED WITH DR TAYLOR ABOUT WANTING TO GO HOME. PT DIALYSIS TODAY; BP WAS LOW AFTER COMING BACK FROM DIALYSIS- PT RECEIVED MIDODRINE. NO OTHER C/O OF PAIN; NAUSEA, VOMITING OR CP. PT IS ON TELE- AFIB @100. BED IS IN THE LOWEST POSITION; BED ALARM ON; CALL LIGHTS WITHIN REACH; WILL CONT MONITOR.
--- NOTE | 2020-05-05 04:28 | NUR ---
SHIFT SUMMARY ASSUMED CARE OF PT AT 1900. PT IS A/OX4. PT STATES THE SHE HAD A HORRIBLE DAY AND DOESN'T FEEL GOOD TODAY. HEART SOUND IRREGULAR, TELE SOHWS AFIBE BETWEEN 100-105, DENIES CP. LUNG SOUNDS HAVE INS/EXP WHEEZE IN R BASE AND DIMINISHED T/O BUT AFTER BREATHING TREATMENT TO LUNGS HAD WHEEZING T/O. PT RECEVED BREATHING TREATMENTS FROM RT T/O THE NIGHT WITHOUT RELEIF FOR HER SOB. RT SUGGESTED WE TRY A CPAP, HOSPITALIST AGREED AND CPAPA WAS STARTED ABOUT 0300. PT DID NOT TOLERATE WELL, PT WOULD PULL THE MASK OFF HER FACE, BOTH INTENTIONALLY AND NOT. OXYGEN SATURATIONS REMAIN ABOVE 95% T/O THE NIGHT ON 2L NC. CALL LIGHT IN REACH, BED IN LOWEST POSITION, WILL CONTINUE TO MONITOR UNTIL DAYSHIFT NURSE ARRIVES.
[2020-05-05 05:05] LABS: Hematocrit 33.8 % (33.0-51.0); Hemoglobin 10.5 g/dL (11.5-16.0)
[2020-05-05 05:28] LABS: Albumin, Blood 3.7 g/dL (3.4-5.0); Anion Gap 9 mmol/L (6-16); Blood Urea Nitrogen 54 mg/dL (8-24); Bun/Creatinine Ratio 12.6 (12.0-20.0); CO2, Blood 30 mmol/L (21-32); Chloride, Blood 96 mmol/L (98-108); Creatinine, Blood 4.29 mg/dL (0.40-1.00); Glomerular Filtration Rate 11 (60-); Glucose, Blood 205 mg/dL (70-99); Magnesium, Blood 2.4 mg/dL (1.6-2.4); Phosphorus, Blood 4.3 mg/dL (2.5-4.9); Potassium, Blood 4.2 mmol/L (3.5-5.5); Sodium, Blood 135 mmol/L (136-145)
--- NOTE | 2020-05-05 07:35 | NUR ---
dr luna to see pt [facility] dialysis nurse called and told about a short run of diaylsis today to help with shortness of breath. pt is sleepy this am . rt treatment given continous biox at 99% after treamtent will turn o2 down to 1 Liter.
--- NOTE | 2020-05-05 18:31 | NUR ---
SHIFT SUMMARY PATIENT DENIES PAIN, NAUSEA, AND SHORTNESS OF BREATH AT REST. PATIENT DYSPNEIC W/ACTIVITY. PATIENT HAD DIALYSIS TODAY. PATIENT MAINTAINING OXYGEN SATURATION ABOVE 90% ON 1-2 L/NC. BIPAP FOR SLEEP. PATIENT UP SBA TO BR. UP ON SIDE OF BED FOR MEALS.
[2020-05-06 05:07] LABS: Hematocrit 32.9 % (33.0-51.0); Hemoglobin 10.3 g/dL (11.5-16.0)
[2020-05-06 05:27] LABS: Albumin, Blood 3.6 g/dL (3.4-5.0); Anion Gap 10 mmol/L (6-16); Blood Urea Nitrogen 72 mg/dL (8-24); Bun/Creatinine Ratio 14.7 (12.0-20.0); CO2, Blood 29 mmol/L (21-32); Calcium, Blood 9.9 mg/dL (8.5-10.1); Chloride, Blood 96 mmol/L (98-108); Creatinine, Blood 4.89 mg/dL (0.40-1.00); Glomerular Filtration Rate 9 (60-); Glucose, Blood 208 mg/dL (70-99); Magnesium, Blood 2.5 mg/dL (1.6-2.4); Phosphorus, Blood 4.7 mg/dL (2.5-4.9); Potassium, Blood 4.3 mmol/L (3.5-5.5); Sodium, Blood 135 mmol/L (136-145)
--- NOTE | 2020-05-06 07:35 | NUR ---
05/06/20 0610 PT IMPULSIVE AND BED ALARM SOUNDING. ASSISTED TO BR FOR SMALL VOID AND THEN BACK TO BED. C/O BACK DISCOMFORT. MEDICATED PER SEP. PT ON O2 AT 2LPM AND NOW ON NASAL CANULA. SHE WORE BIPAP ONLY FOR ABOUT 3 1/2 HOURS LAST NIGHT. CONTINOUS PULSE OXIMETER IN PLACE. RT HAD HER ON EAR SENSOR THE FINGER SENSOR DID NOT READ WELL. PT VERY CARELESS WITH TUBES WHEN TURNING OR GETTING UP.
--- NOTE | 2020-05-06 17:41 | NUR ---
SHIFT SUMMARY PT RESTING QUIETLY AWAKE AT START OF SHIFT. DR TAYLOR HERE TO SEE PT. PULL THROUGH HOOKER CALLED TO REPORT PT WOULD NOT BE HAVING DIALYSIS TODAY. PT WITH HX OF ESRD, A-FIB, AND COPD. PT ADMITTED FOR SEVERE SOB R/T COPD EXAC AND CHF. PT ON 2L NC WHEN AWAKE AND 2L ON BIPAP WHEN SLEEPING. PT ON 1L FR, PER DR TAYLOR. PT HAS DIFFICULTY MAINTAINING LIMITS, EVEN USING ICE CHIPS. PT HAS BEEN PLEASANT AND CO-OP TODAY. UP TO CHAIR FOR MEALS; 1P SBA USING CANE FROM HOME. CONTINOUS BIOX ALARMED FOR SEVERAL HOURS D/T PT'S FREQUENT MOVING AROUND, NOT BECAUSE OF O2 SAT'S. PT BECOMING AGITATED AT THE NOISE, WANTING IT OFF. DR BRANDON INFORMED; NEW ORDERS GIVEN. PT ABLE TO WORK WITH P/T AND O/T TODAY. NO C/O. CALL LT IN REACH.
--- NOTE | 2020-05-07 01:44 | NUR ---
05/06/20 2200 UP TO BR FOR LARGE, FORMED BROWN BM. ASSISTED BACK TO BED. PT FRUSTRATED WITH FLUID INTAKE LIMITS AND INSISTS ON ICE CHIPS. ICE CHIPS GIVEN. PT WANTING TO GO HOME TOMORROW. REFUSED BIPAP AND PULSE OXIMETER TODAY.
--- NOTE | 2020-05-07 05:07 | NUR ---
05/07/20 0500 PT WATCHING TV. HAS NOT SLEPT WELL THIS SHIFT. NO SPECIFIC REASON GIVEN. MORE DEPRESSED TODAY OVER ILLNESS AND HOSPITAL/MD PRDERS. WANTS TO DRINK AD JASON EVEN WHEN EXPLAINED REASONS FOR FLUID RESTRICTION. WANTS TO GO HOME TODAY AFTER DIALYSIS. VITALS AND HEART MONITOR STABLE.
[2020-05-07 05:26] LABS: Hematocrit 34.6 % (33.0-51.0); Hemoglobin 10.8 g/dL (11.5-16.0)
[2020-05-07 05:46] LABS: Albumin, Blood 3.6 g/dL (3.4-5.0); Anion Gap 14 mmol/L (6-16); Blood Urea Nitrogen 97 mg/dL (8-24); Bun/Creatinine Ratio 17.2 (12.0-20.0); CO2, Blood 21 mmol/L (21-32); Calcium, Blood 9.6 mg/dL (8.5-10.1); Chloride, Blood 96 mmol/L (98-108); Creatinine, Blood 5.64 mg/dL (0.40-1.00); Glomerular Filtration Rate 8 (60-); Glucose, Blood 239 mg/dL (70-99); Magnesium, Blood 2.4 mg/dL (1.6-2.4); Phosphorus, Blood 5.7 mg/dL (2.5-4.9); Potassium, Blood 5.2 mmol/L (3.5-5.5); Sodium, Blood 131 mmol/L (136-145)
--- NOTE | 2020-05-07 09:18 | NUR ---
PATIENT TO DIALYSIS ROOM VIA W/C.
--- NOTE | 2020-05-07 18:15 | NUR ---
SHIFT SUMMARY PT AOX4; CALLS APPROPROATELY. PT IS A POSSIBLE DISCHARGE TOMORROW AFTER THE DIALYSIS IN AM. NO IV ACCESS NEEDED PER DR ORDER. PT ON TELE AFIB AT 90S. PT IS ON O2- 3L AND O2 SATS ABOVE 90S. PT HAD A HYPOTENSIVE EPISODE; MEDICATED PER EMAR; ASYMPTOMATIC. NO OTHER C/O AT THIS SHIFT. BED ALARM ON; CHAIR ALARM ON; BED IS IN THE LOWEST POSITION; CALL LIGHTS WITHIN REACH AND WILL CONT MONITOR.
[2020-05-08 05:07] LABS: Hemoglobin 10.7 g/dL (11.5-16.0)
[2020-05-08 05:22] LABS: Albumin, Blood 3.6 g/dL (3.4-5.0); Anion Gap 12 mmol/L (6-16); Blood Urea Nitrogen 59 mg/dL (8-24); Bun/Creatinine Ratio 14.4 (12.0-20.0); CO2, Blood 27 mmol/L (21-32); Calcium, Blood 9.8 mg/dL (8.5-10.1); Chloride, Blood 98 mmol/L (98-108); Creatinine, Blood 4.09 mg/dL (0.40-1.00); Glomerular Filtration Rate 11 (60-); Glucose, Blood 103 mg/dL (70-99); Magnesium, Blood 2.4 mg/dL (1.6-2.4); Phosphorus, Blood 4.9 mg/dL (2.5-4.9); Potassium, Blood 3.9 mmol/L (3.5-5.5); Sodium, Blood 137 mmol/L (136-145)
--- NOTE | 2020-05-08 06:12 | NUR ---
DEPUTY CONTROLLER SUMMARY Aline slept intermittantly overnight waking up to a tight barking cough. Breathing tx given as available. No complaints of discomfort. Patient had a total of about 100ml overnight of ice chips. Hoping to go home today after dialysis
--- NOTE | 2020-05-08 15:47 | NUR ---
Initial Visit: Referal to palliative care for symptom management and advanced care planning. 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 Patient is alert, oriented. She is sitting in a chair watching TV, having just worked with physical therapy. Pt is able to converse easily without evidence of shortness of breath. She is wearing O2. She reports she is feeling well and would like to go home now. Denies pain: Does report "discomfort" in her neck - she states this is mild and does not need additional medication for pain management. She reports a good appetite; she eats at every meal, feels hungry appropriately between meals. She states that she has started choking on her food, but reports that this is only because her mouth is so dry that it is difficult to swallow. Liquids with meals are needed for safe eating. Discussed code status, resusitation wishes for future. Provided and reviewed POLST form and Advance directive forms. She expresses interest in completing them. She reports that she DOES wish resusitation "if I'm not a vegetable afterwards." Explained resusitation efforts and the uncertainty of survival following resusitation. She verbalizes understaning of this. She has no further questions on this information at this time. She is hoping to discharge. Instructed to take the advance directive and the POLST form to her next office visit to discuss with PCP. Pt reports that her son is her main healthcare telephone sales representative with her sister and follow up telephone sales representative. Encouraged discussing wishes with her family. Pt lives independently, however, she has her boyfriend and her sister that live close to her and help her daily. She welcomes palliative care to have future conversations regarding her health. Patient is competent to make decisions, although she does not seem to fully understand her prognosis with her multiple chronic illnesses. Palliative care to remain available. Follow up as able.
--- NOTE | 2020-05-08 17:25 | NUR ---
SHIFT SUMMARY PT AOX4; CALLS APPROPRIATELY. ON O2 3L-DYSPNEA ON EXERTION. PT HAD DIALYSIS THIS MORNING. PT ALSO HAD A XRAY OF HER CHEST; PT WORKED WITH PT/OT, AND HAD SPEECH EVAL TODAY DUE TO DIFFICULTY SWALLOWING. PT SEEN BY PALLIATIVE TODAY; PT EXPRESSED HER FRUSTRATIONS ABOUT WANTING TO GO HOME-ENCOURAGED THE PT TO EXPRESS HER FEELINGS ABOUT DISEASE PROCESS AND NOT BEING ABLE TO GO HOME. PT ALSO HAD AN EPISODE OF HYPOTENSION; MEDICATED PER EMAR. BED IS IN THE LOWEST POSITION; CALL LIGHTS WITHIN REACH AND WILL CONT. MONITOR.
--- NOTE | 2020-05-08 18:14 | NUR ---
Initial spiritual care note: Aline is non-protestant, but appeared to benefit from theraputic listening and encouragement. She believes her cancer treatments are curing her illness. She lives alone with her cat, but has a BF she sees on weekends. Her sister "lives one minute away" with their 100 YO mother. Aline is fiercley independant and is discouraged. She is bewildered "that my labs aren't getting better" and reports frustration with fluid restrictions and swallow problems. It appeared to calm her to be heard and affirmed. She responded well to gentle corporate counselor. It seems she does not understand her multiple illnesses and their trajectory. Tilting Saw Operator services will remain available.
[2020-05-09 04:54] LABS: Hematocrit 34.6 % (33.0-51.0); Hemoglobin 10.9 g/dL (11.5-16.0); Mean Corpuscular HGB 32.2 pg (26.0-34.0); Mean Corpuscular HGB Conc 31.5 g/dL (31.5-36.5); Mean Corpuscular Volume 102 fL (80-100); Mean Platelet Volume 10.6 fL (9.1-12.4); Platelet Count 129 K/mm3 (150-400); RDW Coefficient Variation 14.9 % (11.7-14.2); RDW Standard Deviation 55.5 fL (35.1-46.3); Red Blood Cell Count 3.38 M/mm3 (3.80-5.20); White Blood Cell Count 8.66 K/mm3 (4.00-11.30)
--- NOTE | 2020-05-09 05:06 | NUR ---
SUPERVISOR DIAGNOSTIC SUMMARY Aline was again feeling overwhelmed and appeared depressed about still being in the hospital. No complaints of discomfort or pain. just thirst. Gave patient 20-30ml ice cubes 2-3 times overthe course of the night. Tele remains AFib 80's to 100
[2020-05-09 05:14] LABS: Albumin, Blood 3.5 g/dL (3.4-5.0); Anion Gap 11 mmol/L (6-16); Blood Urea Nitrogen 74 mg/dL (8-24); Bun/Creatinine Ratio 15.8 (12.0-20.0); CO2, Blood 28 mmol/L (21-32); Chloride, Blood 97 mmol/L (98-108); Creatinine, Blood 4.68 mg/dL (0.40-1.00); Glomerular Filtration Rate 10 (60-); Glucose, Blood 149 mg/dL (70-99); Magnesium, Blood 2.3 mg/dL (1.6-2.4); Potassium, Blood 4.1 mmol/L (3.5-5.5); Sodium, Blood 136 mmol/L (136-145)
[2020-05-09] MEDS ORDERED: Prednisone10 MG PO (13:40)
--- NOTE | 2020-05-09 14:52 | NUR ---
PT DCD HOME WITH SISTER. MED REC FAXED TO PHARMACY ON FILE. ALL INSTRUCTIONS REVIEWED WITH THE PT WHO VERBALIZED AN UNDERSTANDING. PT HAS F/U WITH PCP SCHEDULED ALREADY. PT PACKED HER PERSONAL BELONGINGS. PT SISTER HERE TO DRIVE HER HOME.
== END 2020-05-09 15:00 | disposition home health service (06) | DRG 291 ==
LOC: ER 14:31 → PCU 22:03 → MEDS 05-02 11:13 → ENPENDDIS 05-09 13:52 → MEDS 05-09 15:00
PROVIDERS: Internal Medicine; Internal Medicine Nephrology; Physician Assistant; ADMIT Internal Medicine
PROC: 5A1D70Z Performance of Urinary Filtration, Intermittent, Less than 6 Hours Per Day (ICD-10-PCS; principal; 2020-05-01)
PROC: 5A1D70Z Performance of Urinary Filtration, Intermittent, Less than 6 Hours Per Day (ICD-10-PCS; 2020-05-06)
DX: I13.2 Hypertensive heart and chronic kidney disease with heart failure and with stage 5 chronic kidney disease, or end stage renal disease (principal); I50.33 Acute on chronic diastolic (congestive) heart failure; N18.6 End stage renal disease; J96.21 Acute and chronic respiratory failure with hypoxia; J96.22 Acute and chronic respiratory failure with hypercapnia; C85.91 Non-Hodgkin lymphoma, unspecified, lymph nodes of head, face, and neck; E87.1 Hypo-osmolality and hyponatremia; I48.20 Chronic atrial fibrillation, unspecified; J44.1 Chronic obstructive pulmonary disease with (acute) exacerbation; N25.81 Secondary hyperparathyroidism of renal origin; Z51.5 Encounter for palliative care; E11.22 Type 2 diabetes mellitus with diabetic chronic kidney disease; Z99.2 Dependence on renal dialysis; D63.1 Anemia in chronic kidney disease; E78.5 Hyperlipidemia, unspecified; E83.39 Other disorders of phosphorus metabolism; E87.5 Hyperkalemia; E88.09 Other disorders of plasma-protein metabolism, not elsewhere classified; F32.9 Major depressive disorder, single episode, unspecified; G25.81 Restless legs syndrome; G62.9 Polyneuropathy, unspecified; W19.XXXA Unspecified fall, initial encounter; Z87.891 Personal history of nicotine dependence; R13.10 Dysphagia, unspecified; Z91.81 History of falling; Z99.81 Dependence on supplemental oxygen; I95.89 Other hypotension; E11.65 Type 2 diabetes mellitus with hyperglycemia; G47.00 Insomnia, unspecified
CPT/HCPCS: 36415; 36600; 70450; 71046; 71260; 80053; 80069; 82803; 82947; 83735; 83880; 84484; 85014; 85018; 85025; 85027; 85379; 92610; 93005; 93010; 94640; 94660; 94664; 94667; 94668; 94760; 94761; 94762; 96374-59; 97110; 97116; 97162; 97166; 97535; 98960; 99285-25; A9270; A9270-GY; J0881; J1650; J2920; J2930; J7512; Q9967

== ENCOUNTER 2020-06-22 13:13 | Day surgery (SDC) | payer MEDICARE ==
[2020-06-22] MEDS ORDERED: GLIP5 PO (14:47)
== END 2020-06-22 15:20 | disposition home or self-care (01) ==
LOC: ATC 13:13
DX: Z48.00 Encounter for change or removal of nonsurgical wound dressing (principal); C85.93 Non-Hodgkin lymphoma, unspecified, intra-abdominal lymph nodes; E11.22 Type 2 diabetes mellitus with diabetic chronic kidney disease; I12.0 Hypertensive chronic kidney disease with stage 5 chronic kidney disease or end stage renal disease; N18.6 End stage renal disease; Z99.2 Dependence on renal dialysis; E78.00 Pure hypercholesterolemia, unspecified; Z88.5 Allergy status to narcotic agent; Z88.8 Allergy status to other drugs, medicaments and biological substances; Z88.2 Allergy status to sulfonamides; Z79.899 Other long term (current) drug therapy
CPT/HCPCS: 71045

== ENCOUNTER → 2020-06-23 | Outpatient (CLI) | payer MEDICARE ==
[~2020-06-23] MED LIST changes: +LEVOFLOXACIN250 M2 PO
[2020-06-23 10:53] LABS: BASOPHILS ABSOLUTE AUTO 0.04 K/mm3 (0.00-0.23); BASOPHILS PERCENT AUTO 1 % (0-2); EOSINOPHILS ABSOLUTE AUTO 0.07 K/mm3 (0.00-0.68); EOSINOPHILS PERCENT AUTO 1 % (0-6); Hematocrit 32.1 % (33.0-51.0); Hemoglobin 10.4 g/dL (11.5-16.0); IMMATURE GRAN ABSOLUTE AUTO 0.05 K/mm3 (0.00-0.10); IMMATURE GRAN PERCENT AUTO 1 % (0-1); LYMPHOCYTES ABSOLUTE AUTO 0.76 K/mm3 (0.84-5.20); LYMPHOCYTES PERCENT AUTO 9 % (21-46); MONOCYTES ABSOLUTE AUTO 0.54 K/mm3 (0.16-1.47); MONOCYTES PERCENT AUTO 6 % (4-13); Mean Corpuscular HGB 30.5 pg (26.0-34.0); Mean Corpuscular HGB Conc 32.4 g/dL (31.5-36.5); Mean Corpuscular Volume 94 fL (80-100); Mean Platelet Volume 10.2 fL (9.1-12.4); NEUTROPHILS ABSOLUTE AUTO 6.98 K/mm3 (1.96-9.15); NEUTROPHILS PERCENT AUTO 83 % (41-73); Platelet Count 177 K/mm3 (150-400); RDW Coefficient Variation 14.7 % (11.7-14.2); RDW Standard Deviation 50.5 fL (35.1-46.3); Red Blood Cell Count 3.41 M/mm3 (3.80-5.20); White Blood Cell Count 8.44 K/mm3 (4.00-11.30)
[2020-06-23 11:10] LABS: Albumin, Blood 3.3 g/dL (3.4-5.0); Albumin/Globulin Ratio 1.1 (0.8-1.8); Bilirubin, Total 0.5 mg/dL (0.1-1.0); Bun/Creatinine Ratio 12.3 (12.0-20.0); Calcium, Blood 8.9 mg/dL (8.5-10.1); Creatinine, Blood 4.4 mg/dL (0.40-1.00); Phosphorus, Blood 6.5 mg/dL (2.5-4.9); Potassium, Blood 3.6 mmol/L (3.5-5.5); Total Protein, Blood 6.3 g/dL (6.4-8.2)
== END | disposition home or self-care (01) ==
LOC: LAB 10:46 → LAB SHORT 10:46
PROVIDERS: Internal Medicine Hematology & Oncology
DX: C85.93 Non-Hodgkin lymphoma, unspecified, intra-abdominal lymph nodes (principal); I12.0 Hypertensive chronic kidney disease with stage 5 chronic kidney disease or end stage renal disease; N18.6 End stage renal disease
CPT/HCPCS: 80053; 83615; 84100; 85025

== ENCOUNTER 2020-06-26 00:05 | Day surgery (SDC) | payer MEDICARE ==
[~2020-06-26 00:05] MED LIST changes: -LEVOFLOXACIN250 M2 PO
== END 2020-06-26 14:27 | disposition home or self-care (01) ==
LOC: ATC 00:05
DX: Z48.00 Encounter for change or removal of nonsurgical wound dressing (principal); C85.93 Non-Hodgkin lymphoma, unspecified, intra-abdominal lymph nodes; I12.0 Hypertensive chronic kidney disease with stage 5 chronic kidney disease or end stage renal disease; E11.22 Type 2 diabetes mellitus with diabetic chronic kidney disease; N18.6 End stage renal disease; I48.91 Unspecified atrial fibrillation; E78.00 Pure hypercholesterolemia, unspecified; F32.9 Major depressive disorder, single episode, unspecified; Z99.2 Dependence on renal dialysis; Z79.4 Long term (current) use of insulin; Z88.5 Allergy status to narcotic agent; Z88.8 Allergy status to other drugs, medicaments and biological substances; Z91.048 Other nonmedicinal substance allergy status
CPT/HCPCS: 99211

== ENCOUNTER 2020-07-03 00:10 | Day surgery (SDC) | payer MEDICARE ==
[2020-07-03] MEDS ORDERED: LEVOFLOXACIN250 M2 PO (13:41)
== END 2020-07-03 12:36 | disposition home or self-care (01) ==
LOC: ATC 00:10
DX: Z45.2 Encounter for adjustment and management of vascular access device (principal); I12.0 Hypertensive chronic kidney disease with stage 5 chronic kidney disease or end stage renal disease; E11.22 Type 2 diabetes mellitus with diabetic chronic kidney disease; N18.6 End stage renal disease; E78.00 Pure hypercholesterolemia, unspecified; Z99.2 Dependence on renal dialysis; Z79.899 Other long term (current) drug therapy; Z88.5 Allergy status to narcotic agent; Z88.8 Allergy status to other drugs, medicaments and biological substances; C85.93 Non-Hodgkin lymphoma, unspecified, intra-abdominal lymph nodes; Z79.84 Long term (current) use of oral hypoglycemic drugs
CPT/HCPCS: 99211

== ENCOUNTER 2020-07-14 20:14 | Inpatient (IN) | payer MEDICARE ==
[~2020-07-14] VITALS: Ht 165.1 cm; Wt 70.4 kg
[~2020-07-14 20:14] MED LIST changes: +LEVOFLOXACIN250 M2 PO
[2020-07-14 20:38] LABS: BASOPHILS ABSOLUTE AUTO 0.07 K/mm3 (0.00-0.23); BASOPHILS PERCENT AUTO 1 % (0-2); EOSINOPHILS ABSOLUTE AUTO 0.02 K/mm3 (0.00-0.68); EOSINOPHILS PERCENT AUTO 0 % (0-6); Hematocrit 31.7 % (33.0-51.0); Hemoglobin 10.4 g/dL (11.5-16.0); IMMATURE GRAN ABSOLUTE AUTO 0.35 K/mm3 (0.00-0.10); IMMATURE GRAN PERCENT AUTO 3 % (0-1); LYMPHOCYTES ABSOLUTE AUTO 1.12 K/mm3 (0.84-5.20); LYMPHOCYTES PERCENT AUTO 9 % (21-46); MONOCYTES PERCENT AUTO 7 % (4-13); Mean Corpuscular HGB 29.5 pg (26.0-34.0); Mean Corpuscular HGB Conc 32.8 g/dL (31.5-36.5); Mean Corpuscular Volume 90 fL (80-100); Mean Platelet Volume 9.9 fL (9.1-12.4); NEUTROPHILS ABSOLUTE AUTO 10.02 K/mm3 (1.96-9.15); NEUTROPHILS PERCENT AUTO 80 % (41-73); Platelet Count 254 K/mm3 (150-400); RDW Coefficient Variation 14.8 % (11.7-14.2); RDW Standard Deviation 48.7 fL (35.1-46.3); Red Blood Cell Count 3.52 M/mm3 (3.80-5.20); White Blood Cell Count 12.48 K/mm3 (4.00-11.30)
[2020-07-14 20:57] LABS: Albumin/Globulin Ratio 0.8 (0.8-1.8); Bilirubin, Total 0.4 mg/dL (0.1-1.0); Bun/Creatinine Ratio 8.9 (12.0-20.0); Calcium, Blood 9.3 mg/dL (8.5-10.1); Creatinine, Blood 4.16 mg/dL (0.40-1.00); Potassium, Blood 2.6 mmol/L (3.5-5.5); Troponin I 0.083 ng/mL (0.000-0.040)
[2020-07-14 23:34] LABS: Source, Urine Clean Catch
[2020-07-14 23:36] LABS: Bilirubin, Urine Neg (Neg); Blood, Urine 3+ (Neg); Glucose Qualitative, Urine 3+ (Neg); Ketones, Urine Neg (Neg); Leukocyte Esterase, Urine 3+ (Neg); Nitrite, Urine Neg (Neg); Protein, Urine 3+ (Neg); Urobilinogen, Urine NORM (Normal)
[2020-07-14 23:47] LABS: Appearance, Urine Cloudy (Clear); Color, Urine Yellow (P-Yellow)
[2020-07-14 23:48] LABS: White Blood Cells, Urine 50-100 /hpf (0-5)
[2020-07-14 23:49] LABS: Bacteria Many /hpf; Squamous Epithelial Cells Mod /hpf (Few)
--- NOTE | 2020-07-15 01:30 | NUR ---
PCU ADMIT PT BROUGHT TO PCU-09 BY ALEX FROM ER. PT A&O X4. VSS. MONITOR SHOWS AFIB, HR 90's. SPO2 > 92% ON 3L NC WHICH PT REPORTS HOME BASELINE FOR NIGHT USE, NOT REQUIRING O2 WHILE AWAKE DURING DAY. PT NOTED TO HAVE BEN PICC LINE PRESENT UPON ADMIT. PERM CATH TO R CHEST WALL. PT C/O NAUSEA & 9-10/10 ABD PAIN, MEDICATED PER EMAR. PT REPORTS LAST BM DIARRHEA 07/14 AM. PT W/ CLEAR LIQUID DIET. PRESSURE ULCER NOTED TO L HEEL & COCCYX. WOUND PHOTOS TAKEN & PLACED IN CHART. NS/KCL GTT INFUSING PER ORDERS.
[2020-07-15 01:57] LABS: Magnesium, Blood 1.7 mg/dL (1.6-2.4); Potassium, Blood 3.4 mmol/L (3.5-5.5)
--- NOTE | 2020-07-15 02:09 | NUR ---
BRANDON CONSULT/ORDERS CALL TO MD TAYLOR TO REPORT PT ADMISSION/CONSULT. W/ NEW ORDER TO STOP NS/KCL GTT, DRAW STAT K & MG & CALL BACK W/ RESULTS. NOTIFIED OF LABS VALUES, K: 3.4 & M.7. W/ NEW ORDERS TO DC NS/KCL GTT & INITIATE NS @ 50 MLS/HR. NEW LAB ORDERS FOR AM WELL, SEE ORDERS. WILL CONTINUE TO MONITOR
[2020-07-15 04:49] LABS: BASOPHILS ABSOLUTE AUTO 0.04 K/mm3 (0.00-0.23); BASOPHILS PERCENT AUTO 0 % (0-2); EOSINOPHILS PERCENT AUTO 0 % (0-6); Hematocrit 31.1 % (33.0-51.0); Hemoglobin 10.1 g/dL (11.5-16.0); IMMATURE GRAN ABSOLUTE AUTO 0.24 K/mm3 (0.00-0.10); IMMATURE GRAN PERCENT AUTO 1 % (0-1); LYMPHOCYTES ABSOLUTE AUTO 0.53 K/mm3 (0.84-5.20); LYMPHOCYTES PERCENT AUTO 3 % (21-46); MONOCYTES ABSOLUTE AUTO 1.12 K/mm3 (0.16-1.47); MONOCYTES PERCENT AUTO 7 % (4-13); Mean Corpuscular HGB 29.4 pg (26.0-34.0); Mean Corpuscular HGB Conc 32.5 g/dL (31.5-36.5); Mean Corpuscular Volume 91 fL (80-100); Mean Platelet Volume 9.6 fL (9.1-12.4); NEUTROPHILS ABSOLUTE AUTO 15.39 K/mm3 (1.96-9.15); NEUTROPHILS PERCENT AUTO 89 % (41-73); Platelet Count 238 K/mm3 (150-400); RDW Coefficient Variation 14.8 % (11.7-14.2); RDW Standard Deviation 48.7 fL (35.1-46.3); Red Blood Cell Count 3.43 M/mm3 (3.80-5.20); White Blood Cell Count 17.32 K/mm3 (4.00-11.30)
[2020-07-15 05:08] LABS: Anion Gap 12 mmol/L (6-16); Blood Urea Nitrogen 37 mg/dL (8-24); Bun/Creatinine Ratio 8.5 (12.0-20.0); CO2, Blood 26 mmol/L (21-32); Calcium, Blood 9.5 mg/dL (8.5-10.1); Chloride, Blood 103 mmol/L (98-108); Creatinine, Blood 4.33 mg/dL (0.40-1.00); Glomerular Filtration Rate 10 (60-); Glucose, Blood 154 mg/dL (70-99); Magnesium, Blood 1.8 mg/dL (1.6-2.4); Phosphorus, Blood 7.7 mg/dL (2.5-4.9); Potassium, Blood 3.4 mmol/L (3.5-5.5); Sodium, Blood 141 mmol/L (136-145); Troponin I 0.099 ng/mL (0.000-0.040)
--- NOTE | 2020-07-15 06:19 | NUR ---
SHIFT SUMMARY PT A&O X4. VSS. MONITOR SHOWS AFIB, HR 80's-110's. SPO2 > 92% ON 3L NC. PT ABD PAINFUL, MEDICATED W/ PRN IV DILAUDID PER EMAR X1 THIS SHIFT & IV FENTANYL PER EMAR X1 THIS SHIFT WELL. PT SLEEPING INTERMITTENTLY AFTER PAIN MEDICATION. PT MORE COMFORTABLE UP IN RECLINER CHAIR. PT REQUIRING 1-2 PERSON ASSIST FOR OOB TRANSFER. NS GTT INFUSING PER EMAR.
--- NOTE | 2020-07-15 08:29 | NUR ---
PT WITH INCREASING ABD PAIN, UPON ATTEMPTING TO MEDICATE PT FOR PAIN VITALS ARE OBTAINED BP 67/43 WITH MAP OF 48. DR WILLIS IS CALLED, ORDER FOR NS BOLUS IS OBTAINED AND INFUSING AT THIS TIME. DR WILLIS TO ROOM FOR ASSESSMENT DECISION MADE TO TRANSFER PT TO ICU FOR CLOSER OBSERVATION. PT FAINT THREADY PULSES NOTED T/O. PT FEBRILE.
--- NOTE | 2020-07-15 09:07 | NUR ---
ARRIVAL TO ICU: PT BROUGHT IN FROM PCU ON HER SIDE IN THE POSSITION MOANING AND CRYING OUT IN PAIN. PT ASKING IF SHE IS GONING
--- NOTE | 2020-07-15 09:10 | NUR ---
BEDSIDE ASSESSMENT: PT arrives to the ICU noted to be in the position moaning in pain. PT transferred to the ICU bed and placed on ICU O2 on Boom. Abdomen is noted to be firm and tender no BT noted in any of the 4 quadrants. BP cuff was placed on her R wrist and SBP was noted in the 60's. O2 sats are noted to be dropping and sats are noted in the 70's, upon assessment O2 was turned on to 5L. Dr Callahan was consulted and orders received to run 2L LR bolus, and Levophed ordered. Upon this RNs assessment PT is noted to have a dialysis fistula in her R upper arm that does not have a bruie or thrill noted, BP cuff moved to L wrist. Dialysis cath noted in PT R chest wall. quarter doper Lara at bedside to assess pt for morning dialysis orders. Dialysis placed on hold at this time d/t low BP and status of PT. One port PICC line noted in the L upper arm with NS bolus running from order that was placed prior to arrival to the unit. Dr Callahan on his way in.
--- NOTE | 2020-07-15 09:21 | NUR ---
DIALYSIS- [facility] CALLED AND STATED THAT PT WAS BEING MOVED TO ICU 6. HER BP IS IN THE 60S AND HER ABD IS HARD. SHE IS IN PAIN. THEY NOTIFIED THE SURGEON AND I NOTIFIED DR TAYLOR. HE SAID TO CANCEL TX FOR TODAY.
[2020-07-15 09:41] LABS: Bicarbonate Venous 21.8 mmol/L (24.0-30.0); PCO2 Venous 37.7 mmHg (38-42); pH Blood Venous 7.38 (7.34-7.37)
--- NOTE | 2020-07-15 11:01 | NUR ---
Returned to ICU at request of charge attendant. Surgeon had evaluated pt and CT and found abd full of air and no surgical intervention to alleviate. Dr Callahan at bedside explaining dx/status to pt. She is in distress with pain and dyspnea. Pt has nonrebreather and 10L O2. Pt able to verbalize understanding that she is dying. When I spoke to her I confirmed that she wants comfort measures at this time. Comfort care orders received. Bedside RN and I stayed with pt for approx 1.5 hours until pt's sister Margie arrived. Just prior to pt's sister arriving pt achieved a better level of comofort and decreased respiratory distress. Pt had received frequent administration of morphine and one dose of ativan with little relief achieved. placed new order for fentanyl now and start of BURNING MACHINE OPERATOR. This was effective within 5-10 minutes. Pt has audible wheeze and rattle in upper/mid airway. When sister arrived, changes since I spoke to her earlier on the phone reviewed and pt's actively dying status explained. Explained current tx including pressors and asked sister if she wanted us to discontinue Aline's BP support/pressors. Sister nodded yes and RN followed up with d/c of pressors. Dr Callahan updated by me and by bedside RN on sister's arrival and request. I inquired if Claritza would like Thoracic Medicine Physician visit and she said yes. Thoracic Medicine Physician paged and to the room within 5 minutes. fisher weir updated also. Pal care to remain avail. I stepped out to give pt/sister and inspector chief privacy.
--- NOTE | 2020-07-15 11:55 | NUR ---
Events leading up to comfort care and family arrival: 909 - Dr Callahan arrives to the room. Levophed arrives and is spiked and ready to start. 0916 - Dr Callahan assess pt and preps for central line to be placed in L IJ, 16 cm 8 1/2 Albanian. Pt educated on procedure and PT verbally agrees. OR called to notify Dr Mendez of Emergent procedure needed for PT. 0923- BP 60/50 Levophed started at 10 mcg/min per DR Callahan and placed into Y site of Bolus line running threw PICC. 0927- Fentanyl 50mcg given per verbal order by Dr Callahan. With 10ml flush. BP 111/[address] Mendez called the unit to have DR Callahan call when complete with Central line. PT placed in trendelenburg. 0929 - Central line procedure started at this time 0931 - Guide wire out at this time. BP mean only of 17. Levophed turned up to 20 mcg/min Vasopressin ordered. BP 69/40. 0936 - BP 84/65 Levophed turned up to 30 mcg/min. Lactic acid and VBG ordered on blood drawn from central line by Dr Callahan. 0939 - Verbal order by Dr Callahan for Bicarb 2 amps and administered. 0941 - BP mean only 65. X-Ray ordered 0947 - Verbal order for Fentanyl of 50mcg and administered. BP 73/41 HR [id number] [id number] - X-Ray done. Dr Callahan and Dr Linda at bedside. Pt placed on Non Rebreather @ 10L d/t increased air need and O2 sats in the 80's. 0950 - Dr Callahan at bedside educating PT of the inflammation and Air in her abdomen. Educates and Informs PT she is not a surgical candidate and plan to keep her comfortable. PT verbally agrees to DNR and comfort care. Will keep PT on Pressures and O2 until sister is able to arrive. 0955 - Dr Callahan gives verbal order for Fentanyl 50mcg and administered. 1000 - Vasopressin started. Sydnee from Palliative Care at bedside. DNR band placed on pt R wrist and comfort care orders being placed into computer at this time by shake out workerSANJIV Bender. 1003 - BP 53/33 HR 155 1005 - Fentanyl 50mcg given per verbal orders from Dr Callahan. PT stops moaning and a slight rattle heard with each breath. 1007 - PT requests water. Given small amount with spoon by this RN. 1017 - HR 154 BP 76/38 1020 - Morphine 1mg via IV given 1021 - PT asks for more pain meds 2 mg Morphine via IV given 1022 - 1mg Morphine IV given 1025 - PT refuses Ativan 1028 - 10mg of Roxanol given R side cheek 1032 - 1mg Ativan IV given after PT agrees 1033 - PT states still in pain appears less anxious 10mg of Roxanol given. 1040 - PT is noted to be pulling off blankets and stating she is hot requests a fan. Dr Callahan notified of all meds given that are currently available per comfort care orders and pt is moaning more in pain Verbal order for 100 mcg of Fentanyl. Pt appears to have a much louder rattle noted with breathing while giving 100 mcg of Fentanyl. Stopped 2nd Liter of LR and Dr Callahan notified and agrees. 1044 - PT sister arrives to the unit and updated on the situation. PT appears much more comfortable than previously noted. 1052 - Raghav Matos called to the room for support. Pressers stopped. 1054 - Sydnee from Palliative care leaves the room. 1100 - Pt placed on NC and taken off of the Non-rebreather at this time. Raghav Bonner arrives to the room. This RN leaves the room. Monitor in room turned off. Dr Callahan notified of pressers being stopped and placed on NC per sisters request for patient comfort.
--- NOTE | 2020-07-15 14:19 | NUR ---
Spiritual care visit conducted. I am told about patient's dire condition and so I visit at length with patient's sister, Claritza. I conduct a life review of both patient and Claritza. Claritza shares personal stories about herself and some about patient. I normalize Claritza's experience and highlight the donita and love shared between them. I celebrate with Claritza the courage and strength the patient has had. I provide therapeutic listening and prayer. Claritza responds well and shows signs of being comforted. I will continue to remain available to patient and family.
--- NOTE | 2020-07-15 14:41 | NUR ---
EMIL: SISTER OPENS THE DOOR OF THE ROOM TO CALL THE RN. PT HR ON MONITOR IS NOTED IN THE 40'S. UPON ENTERING THE ROOM PT DOES NOT APPEAR TO BE BREATHING. THIS RN LISTENED TO WHERE HER HEART WOULD BE AND NO SOUNDS OF HER HEART BEATING. O2 NC REMOVED AND EMIL CALLED AT 1410. SISTER TOOK PT BELONGINGS. CHECKED PT HANDS FOR RINGS NONE NOTED. SISTER STATES SHE DOESN'T HAVE A PREFERANCE FOR HOMES, BUT WOULD LIKE TO CHECK WITH HER AND THE PATIENTS MOTHER. WILL CALL IN TO THE UNIT ONCE SHE ARIVES HOME. SISTER DENIES ANY NEEDS OR ASSISTANCE LEAVING THE UNIT.
--- NOTE | 2020-07-15 17:11 | NUR ---
BODY HAS LEFT THE BUILDING. [facility] ARIVED TO TAKE PT.
== END 2020-07-15 14:10 | DRG 871 ==
LOC: ER 20:14 → ICUE 23:45 → PCU 23:45 → ICUE 07-15 08:42
PROVIDERS: Internal Medicine Nephrology; Physician Assistant; ADMIT Internal Medicine
PROC: 02HV33Z Insertion of Infusion Device into Superior Vena Cava, Percutaneous Approach (ICD-10-PCS; principal; 2020-07-15)
PROC: 3E043XZ Introduction of Vasopressor into Central Vein, Percutaneous Approach (ICD-10-PCS; 2020-07-15)
DX: A41.9 Sepsis, unspecified organism (principal); N18.6 End stage renal disease; R65.21 Severe sepsis with septic shock; N25.81 Secondary hyperparathyroidism of renal origin; I50.32 Chronic diastolic (congestive) heart failure; I48.20 Chronic atrial fibrillation, unspecified; C85.90 Non-Hodgkin lymphoma, unspecified, unspecified site; K55.9 Vascular disorder of intestine, unspecified; Z79.84 Long term (current) use of oral hypoglycemic drugs; E66.01 Morbid (severe) obesity due to excess calories; Z51.5 Encounter for palliative care; J44.9 Chronic obstructive pulmonary disease, unspecified; E78.5 Hyperlipidemia, unspecified; Z68.25 Body mass index [BMI] 25.0-25.9, adult; Z99.2 Dependence on renal dialysis; Z87.891 Personal history of nicotine dependence; E87.6 Hypokalemia; I11.0 Hypertensive heart disease with heart failure; E83.39 Other disorders of phosphorus metabolism; E88.09 Other disorders of plasma-protein metabolism, not elsewhere classified; Z99.81 Dependence on supplemental oxygen; Z66 Do not resuscitate; E11.51 Type 2 diabetes mellitus with diabetic peripheral angiopathy without gangrene; I95.9 Hypotension, unspecified; L89.622 Pressure ulcer of left heel, stage 2
CPT/HCPCS: 36415; 71045; 74176; 80053; 80069; 81001; 82803; 82947; 83605; 83690; 83735; 84132; 84484; 85025; 87040; 87086; 93005; 93010; 94760; 96361; 96374; 96375; 99285-25; J1170; J1200; J2060; J2270; J2405; J2543; J2550; J3010; J3480; J7030; J7060; J7120